=== PATIENT | female | born 1960 | race Asian ===

== ENCOUNTER 2016-03-08 14:41 | Emergency (ER) | payer OTHER ==
[~2016-03-08] VITALS: Ht 160 cm; Wt 59.0 kg
[2016-03-08] MEDS ORDERED: Acetaminophen 500mg (ES) tab ORAL ONE ×2 (15:30→16:15)
[2016-03-08] MEDS ORDERED: Metoclopramide 10mg/2ml Inj IM ONE (15:30)
--- NOTE | 2016-03-08 15:45 | Emergency Room Report ---
History of Present Illness General Chief Complaint: Headache Source: Patient (Radha Pandey) Present Illness HPI 55-year-old female presents to emergency Department complaining of 10/10 in severity headache with sudden onset x2 days. Patient states that 3 days ago she had similar sudden onset headache which resolved on its own after 3 hours. PT. states PEARCE exacerbated if she coughs, denies recent URI or frequent coughing. Patient states she had another onset yesterday morning which has not resolved since. Patient reports nausea denies vomiting denies weakness. Patient reports recent respiratory illness. Patient states it feels as though her head is going to explode. Patient is not taking any medication for her pain. Patient does not have a history of PEARCE or migraines nor family history of migraines or headaches. Patient states she is healthy other than allergies to animals. Patient states her family is relatively healthy and only her mother has resolved diabetes. Denies PEARCE onset at the same time daily, denies rhinorrhea , denies recent spinal procedure. Patient denies taking blood thinning medication she denies recent fall or trauma. Pt states the PEARCE is minimally reduced with tight tension applied to the back of her neck. denies neck pain/ stiffness. Patient denies visual changes, photophobia or changes in mentation. Denies CP, Palpitations, LOC, AMS, dizziness, Changes in Vision, Sensation, or paresthesias. (Radha Pandey) HPI See note by Ms. Pandey. (Jorge Irizarry M.D.) Allergies: Coded Allergies: No Known Allergies (Unverified , 03/08/16) Patient History Past Medical History: see triage record Past Surgical History: none Pertinent Family History: none Now: No Immunizations: UTD Reviewed Nursing Documentation: PMH: Agreed, PSxH: Agreed (Radha Pandey) Past Medical History: none Pertinent Family History: other - no aneurisms or strokes (Jorge Irizarry M.D.) Nursing Documentation-PMH Past Medical History: No Stated History (Radha Pandey) Review of Systems All Other Systems: negative except mentioned in HPI (Radha Pandey) Physical Exam Vital Signs Date Time Temp Pulse Resp B/P Pulse Ox O2 Delivery O2 Flow Rate FiO2 03/08/16 15:04 97.7 73 15 127/81 97 Room Air Sp02 EP Interpretation: reviewed, normal General Appearance: no apparent distress, alert, GCS 15, non-toxic Head: normocephalic, atraumatic Eyes: bilateral eye PERRL, bilateral eye normal inspection ENT: hearing grossly normal, normal pharynx, no angioedema, normal voice Neck: full range of motion, no meningismus, no bony tend, supple/symm/no masses Respiratory: chest non-tender, lungs clear, normal breath sounds, speaking full sentences Cardiovascular #1: regular rate, rhythm, no edema Gastrointestinal: normal bowel sounds, non tender, soft, no guarding, no rebound Rectal: deferred Genitourinary: normal inspection, no CVA tenderness Musculoskeletal: back normal, gait/station normal, normal range of motion, non- tender, no calf tenderness Neurologic: alert, oriented x3, responsive, motor strength/tone normal, sensory intact, speech normal Psychiatric: judgement/insight normal, memory normal, mood/affect normal, no suicidal/homicidal ideation Skin: normal color, no rash, warm/dry, well hydrated Lymphatic: no adenopathy (Radha Pandey P.ACheli) Procedures Lumbar Puncture Consent: Written Location: L4-L5 - and L3-4 Anesthesia: 1% Lidocaine Volume Anesthetic (ccs): 1 Prep: bedadine Needle Size: 2 1/2 CSF: clear Post-Procedure: recumbent position Attempts: Other - PA one attempt, one attempt by me Complications: none Patient Tolerated: Well (Jorge Irizarry M.D.) Medical Decision Making PA Attestation Dr. Irizarry is my supervising Physician whom patient management has been discussed with. (Radha Pandey P.A.) Diagnostic Impression: Primary Impression: Headache Qualified Codes: R51 - Headache ER Course Pt. presents to the ED c/o headache x 2 days, with sudden onset, and associated nausea. denies fevers or chills, denies hx of PEARCE or migraines. 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 Ddx considered but are not limited to migraine, SAH, Pseudo motor Cerebri, Mass lesion, Cluster PEARCE, Tension PEARCE, Post lumbar puncture PEARCE. Vital signs: are WNL, pt. is afebrile H&PE are most consistent with Sudden onset PEARCE will R/o acute intracranial process, PE relatively benign no evidence of focal neurological deficit. ORDERS: - CT head no contrast: Normal CT head per official radiology report. -CSF Fluid Analysis: Pending ED INTERVENTIONS: - IM Reglan -1000mg PO Tylenol DISPOSITION: re-eval to see if pt. PEARCE has subsided. pt. has Eloped. Labs Test 03/08/16 17:30 CSF Appearance Clear CSF Color Colorless CSF WBC 2 /CU MM (0-5) CSF RBC 65 /CU MM CSF Neutrophils % % CSF Lymphocytes % % CSF Monocytes % % CSF Crenated Cells % CSF Glucose 71 mg/dL (50-80) CSF Total Protein 53 mg/dL (15-45) (Radha Pandey) ER Course See reasoning by Ms. Pandey (joint discussion). Negative CT. PEARCE persists with analgesia. By history, still risk of bleed. LP indicated. LP performed. Closing pressure 13 cm water. 4 ml clear fluid obtained. No xanthochromia. Patient improved with treatment, but concern over history. Awaiting results of LP. Lack of xanthochromia against bleed. Decreaseing RBCs suggest traumatic tap. However, history is significant. Further observation and re-evaluation indicated. Apparently patient had eloped before results returned. Called patient and left message to return here or to go to a hospital near where she lives, that we were not finished with her care and she needed further evaluation and observation. 03/09/16 0:35 (Jorge Irizarry M.D.) Last Vital Signs Date Time Temp Pulse Resp B/P Pulse Ox O2 Delivery O2 Flow Rate FiO2 03/08/16 15:04 97.7 73 15 127/81 97 Room Air (Radha Pandey) Last Vital Signs Date Time Temp Pulse Resp B/P Pulse Ox O2 Delivery O2 Flow Rate FiO2 03/08/16 21:36 02/1103/08/16 16:45 97.8 66 18 97 Room Air BP 123/73 Status: improved (Jorge Irizarry M.D.) Disposition: ELOPED Condition: Unknown Radha Pandey Mar 08, 2016 15:45 Jorge Irizarry M.D. Mar 08, 2016 17:35
[2016-03-08 15:47] VITALS: BP 127/81
[2016-03-08 16:45] VITALS: BP 127/73
[2016-03-08 19:09] LABS: GLUCOSE,CSF 70 mg/dL (50-80)
[2016-03-08 19:15] LABS: APPEARANCE,CSF CLEAR; COLOR,CSF COLORLESS
[2016-03-08 19:17] LABS: WHITE BLOOD CELL,CSF 2 /CU MM (0-5)
[2016-03-08 19:24] LABS: APPEARANCE,CSF CLEAR; COLOR,CSF COLORLESS; WHITE BLOOD CELL,CSF 2 /CU MM (0-5)
[2016-03-08 20:22] LABS: GLUCOSE,CSF 71 mg/dL (50-80)
[2016-03-08 21:36] VITALS: BP 1/1
--- NOTE | 2016-03-09 10:03 | Diagnostic Imaging Report ---
Indication: Headache Technique: Continuous helical CT scanning of the head was performed without intravenous contrast material. Axial and coronal 5 mm sections were generated. Radiation dose was minimized using automated exposure control Dose: Total Dose Length Product - DLP [address] Dose Index - CTDIvol(s) 70.38 mGy. Comparison: None Findings: The ventricular system is normal in size and configuration. There is no shift of midline structures. No abnormal extra-axial fluid collections are noted. There is no evidence of intracerebral bleeding. No other abnormal high or low density areas are noted within the brain. Lowest cuts demonstrate left maxillary sinus disease and evidence of a nasal prosthesis. There is also ethmoid and sphenoid sinus disease. The calvarium is intact. Visualized orbits are unremarkable. Impression: Normal CT scan of the head without contrast material. Incidental finding of sinus disease The CT scanner at [facility] is accredited by the [employer] and the scans are performed using protocols designed to limit radiation exposure to as low as reasonably achievable to attain images of sufficient resolution adequate for diagnostic evaluation.
[2016-03-12 09:03] LABS: CSF COMMENT PATHOLOGIST COMMENT
[2016-03-12 09:04] LABS: CSF COMMENT PATHOLOGIST COMMENT
== END 2016-03-08 18:15 | disposition left against medical advice (07) ==
LOC: EMR 16:23
DX: R51 Headache (principal); J32.2 Chronic ethmoidal sinusitis; J32.3 Chronic sphenoidal sinusitis
CPT/HCPCS: 62270; 70450; 82945; 84157; 87070; 87205; 87220; 89051; 96372; 99284; J2765

== ENCOUNTER 2016-03-10 16:36 | Emergency (ER) | payer OTHER ==
[~2016-03-10] VITALS: Ht 157.5 cm; Wt 59.0 kg
[2016-03-10 16:50] VITALS: BP 156/91
--- NOTE | 2016-03-10 17:17 | Emergency Room Report ---
History of Present Illness General Chief Complaint: Headache Source: Patient Present Illness HPI Patient is a 55-year-old female who presented after having headache. The patient was seen several days ago and was noted to have severe headache acute onset with acute onset of pain. The patient stated that this began after she accidentally inhaled some spices. Patient states that she had severe headache which is throbbing in nature. Had this had slightly improved the past 2 days. The patient states that she no previous history of headaches. The spinal tap was performed several days ago which showed small amount of blood which appear to be from a spinal tap trauma there was no evidence of infection. Patient denies any neck stiffness or weakness. Allergies: Coded Allergies: No Known Allergies (Unverified , 03/08/16) Patient History Past Medical History: see triage record Now: No Reviewed Nursing Documentation: PMH: Agreed, PSxH: Agreed Nursing Documentation-PMH Past Medical History: No Stated History Review of Systems All Other Systems: negative except mentioned in HPI Physical Exam Vital Signs Date Time Temp Pulse Resp B/P Pulse Ox O2 Delivery O2 Flow Rate FiO2 03/10/16 16:42 98.1 86 15 156/91 98 Room Air Sp02 EP Interpretation: reviewed, normal General Appearance: normal inspection, well appearing, no apparent distress, alert Head: atraumatic ENT: normal ENT inspection, hearing grossly normal, normal voice Neck: normal inspection, full range of motion, supple, no bony tend Respiratory: normal inspection, lungs clear, normal breath sounds, no respiratory distress, no retraction, no wheezing Cardiovascular #1: regular rate, rhythm, no edema Gastrointestinal: normal inspection, normal bowel sounds, non tender, soft, no guarding, no hernia Genitourinary: no CVA tenderness Musculoskeletal: normal inspection, back normal, normal range of motion Neurologic: normal inspection, alert, oriented x3, responsive, cardroom drawing runner III-XII nml as tested, speech normal Psychiatric: normal inspection, judgement/insight normal, mood/affect normal Skin: normal inspection, normal color, no rash Medical Decision Making Diagnostic Impression: Primary Impression: Headache Additional Impression: Sinusitis ER Course Patient present for recheck for headache.Differential diagnoses included but was not limited to skull fracture, subarachnoid hemorrhage, meningitis, aneurysm , mass lesion, intracranial hemorrhage.Because of complexity of patient's case laboratory testing and imaging studies were ordered. CT of the head with contrast was ordered due to patient's concerning history for aneurysm. The laboratory studies are unremarkable. CT of the head with contrast showed no evidence aneurysm there was no evidence of CVA. The patient is advised to follow up with primary care doctor in 1-2 days. Patient is advised to return if any worsening condition or if any changes in status that are concerning. Labs Test 03/10/16 17:13 White Blood Count 7.2 K/UL (4.8-10.8) Red Blood Count 4.87 M/UL (4.20-5.40) Hemoglobin 14.7 G/DL (12.0-16.0) Hematocrit 44.2 % (37.0-47.0) Mean Corpuscular Volume 91 FL (80-99) Mean Corpuscular Hemoglobin 30.3 PG (27.0-31.0) Mean Corpuscular Hemoglobin Concent 33.4 G/DL (32.0-36.0) Red Cell Distribution Width 11.5 % (11.6-14.8) Platelet Count 248 K/UL (150-450) Mean Platelet Volume 7.3 FL (6.5-10.1) Neutrophils (%) (Auto) 51.1 % (45.0-75.0) Lymphocytes (%) (Auto) 39.7 % (20.0-45.0) Monocytes (%) (Auto) 6.0 % (1.0-10.0) Eosinophils (%) (Auto) 1.8 % (0.0-3.0) Basophils (%) (Auto) 1.5 % (0.0-2.0) Erythrocyte Sedimentation Rate 17 MM/HR (0-30) Urine Color Pale yellow Urine Appearance Clear Urine pH 7 (4.5-8.0) Urine Specific [place] 1.010 (1.005-1.035) Urine Protein Negative (NEGATIVE) Urine Glucose (UA) Negative (NEGATIVE) Urine Ketones Negative (NEGATIVE) Urine Occult Blood Negative (NEGATIVE) Urine Nitrite Negative (NEGATIVE) Urine Bilirubin Negative (NEGATIVE) Urine Urobilinogen Normal MG/DL (0.0-1.0) Urine Leukocyte Esterase Negative (NEGATIVE) Urine RBC 0 /HPF (0 - 2) Urine WBC 0 /HPF (0 - 2) Urine Squamous Epithelial Cells Few /LPF (NONE/OCC) Urine Bacteria Occasional /HPF (NONE) Sodium Level 143 mEQ/L (135-145) Potassium Level 3.8 mEQ/L (3.4-4.9) Chloride Level 103 mEQ/L (98-107) Carbon Dioxide Level 24 mEQ/L (20-30) Anion Gap 16 (5-15) Blood Urea Nitrogen 15 mg/dL (7-23) Creatinine 0.7 mg/dL (0.5-0.9) Estimat Glomerular Filtration Rate > 60 mL/min (>60) Glucose Level 162 mg/dL (74-106) Calcium Level 9.2 mg/dL (8.6-10.2) Total Bilirubin 0.4 mg/dL (0.0-1.2) Aspartate Amino Transf (AST/SGOT) 33 U/L (5-40) Alanine Aminotransferase (ALT/SGPT) 55 U/L (3-33) Alkaline Phosphatase 49 U/L (35-104) Total Protein 6.9 g/dL (6.6-8.7) Albumin 4.5 g/dL (3.5-5.2) Globulin 2.4 g/dL Albumin/Globulin Ratio 1.8 (1.0-2.7) Last Vital Signs Date Time Temp Pulse Resp B/P Pulse Ox O2 Delivery O2 Flow Rate FiO2 03/10/16 16:42 98.1 86 15 156/91 98 Room Air Status: improved Disposition: HOME, SELF-CARE Condition: Stable Referrals: EMPLOYEE TH JUVE,REFERKY (PCP) Chris Gorman Mar 10, 2016 17:17
[2016-03-10 17:45] LABS: APPEARANCE,URINE CLEAR; KETONES,URINE NEGATIVE (NEGATIVE); LEUKOCYTE ESTERASE ,URINE NEGATIVE (NEGATIVE); NITRITE,URINE NEGATIVE (NEGATIVE); PH,URINE 7 (4.5-8.0); PROTEIN,URINE NEGATIVE (NEGATIVE); UROBILINOGEN,URINE NORMAL MG/DL (0.0-1.0)
[2016-03-10 17:47] LABS: BASOPHILS % (AUTO) 1.5 % (0.0-2.0); EOSINOPHILS % (AUTO) 1.8 % (0.0-3.0); LYMPHOCYTES % (AUTO) 39.7 % (20.0-45.0); MEAN CORPUSCULAR HEMOGLOBIN 30.3 PG (27.0-31.0); MEAN CORPUSCULAR HGB CONC 33.4 G/DL (32.0-36.0); MEAN CORPUSCULAR VOLUME 91 FL (80-99); MEAN PLATELET VOLUME 7.3 FL (6.5-10.1); NEUTROPHILS % (AUTO) 51.1 % (45.0-75.0); PLATELET COUNT 248 K/UL (150-450); RED BLOOD COUNT 4.87 M/UL (4.20-5.40); RED CELL DISTRIBUTION WIDTH 11.5 % (11.6-14.8); WHITE BLOOD COUNT 7.2 K/UL (4.8-10.8)
[2016-03-10 17:56] LABS: BACTERIA,URINE OCCASIONAL /HPF; RBC,URINE 0 /HPF (0 - 2); SQUAMOUS EPITHELIAL CELL,UR FEW /LPF (NONE/OCC); WBC,URINE 0 /HPF (0 - 2)
[2016-03-10 18:00] LABS: ALANINE AMINOTRANSFERASE 55 U/L (3-33); ALBUMIN/GLOBULIN RATIO 1.8 (1.0-2.7); ANION GAP 16 (5-15); ASPARTATE AMINO TRANSFERASE 33 U/L (5-40); CALCIUM 9.2 mg/dL (8.6-10.2); CARBON DIOXIDE 24 mEQ/L (20-30); CHLORIDE 103 mEQ/L (98-107); CREATININE 0.7 mg/dL (0.5-0.9); GLOMERULAR FILTRATION RATE > 60 mL/min (>60); HEMOLYSIS 11; POTASSIUM 3.8 mEQ/L (3.4-4.9); SODIUM 143 mEQ/L (135-145); TOTAL PROTEIN 6.9 g/dL (6.6-8.7)
[2016-03-10 18:37] VITALS: BP 98/83
[2016-03-10 18:56] LABS: ERYTHROCYTE SEDIMENTATION RATE 17 MM/HR (0-30)
[2016-03-10 20:01] VITALS: BP 94/70
[2016-03-10 20:17] VITALS: BP 98/83
--- NOTE | 2016-03-11 10:27 | Diagnostic Imaging Report ---
Indication: Headache Technique: Continuous helical transaxial imaging of the head was obtained during rapid intravenous contrast administration. Arterial phase of enhancement obtained. Coronal 2-D reformats were also obtained and maximum intensity projection images in multiple planes. Study obtained in a Siemens sensation [address] Total Dose length Product (DLP): [address] Dose Index Volume (CTDIvol): 70.4, 16.5, 115.5, 55, 55 mGy Comparison: None Findings: Noncontrast portion of the examination shows no mass effect, edema or hemorrhage with no midline shift and normal appearance of the ventricles and basal cisterns. The algaaciq of Mina is normal in appearance. There is no aneurysm or vascular malformation identified. Intracranial portions of both internal carotid arteries appear normal. Anterior middle screw arteries are unremarkable. Persistence of the origin vessel on the right side demonstrated with the right posterior cerebral artery origin off of the right ICA noted. A left posterior communicating artery is present. Anterior communicating artery noted. Vertebral basilar arteries are unremarkable. Impression: Negative CTA of the head [facility] has communicated the preliminary results to the Emergency Department. Their findings are largely concordant with this report.
== END 2016-03-10 20:17 | disposition home or self-care (01) ==
LOC: EMR 16:54
DX: R51 Headache (principal); J32.9 Chronic sinusitis, unspecified
CPT/HCPCS: 36415; 70496; 80053; 81001; 85025; 85651; 99284; Q9967

== ENCOUNTER 2017-08-12 18:07 | Emergency (ER) | payer SELFPAY ==
[~2017-08-12] VITALS: Ht 160 cm; Wt 61.2 kg
[2017-08-12 18:24] VITALS: BP 162/75
[2017-08-12] MEDS ORDERED: IBUPROFEN600 MG ORAL (18:39)
[2017-08-12] MEDS ORDERED: CYCLOBENZAPRINE10 MG ORAL (18:39)
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
[2017-08-12 18:47] VITALS: BP 162/75
== END 2017-08-12 18:48 | disposition home or self-care (01) ==
LOC: EMR 18:46
DX: R51 Headache (principal); M54.2 Cervicalgia; M54.9 Dorsalgia, unspecified; V43.52XA Car driver injured in collision with other type car in traffic accident, initial encounter; Y92.9 Unspecified place or not applicable
CPT/HCPCS: 99284